=== PATIENT | female | born 1995 | race Native Hawaiian/Other Pacific Islander ===

== ENCOUNTER 2017-09-15 18:50 | Emergency (ER) | payer OTHER ==
[~2017-09-15] VITALS: Ht 170.2 cm; Wt 53.1 kg
== END 2017-09-15 19:30 | disposition home or self-care (01) ==
LOC: ED 18:50
DX: M79.641 Pain in right hand (principal)
CPT/HCPCS: 99281

== ENCOUNTER 2018-09-26 20:57 | Emergency (ER) | payer OTHER ==
[~2018-09-26] VITALS: Ht 170.2 cm; Wt 56.7 kg
[2018-09-26 21:53] LABS: PLATELET COUNT 253 K/uL (152-353)
[2018-09-26 22:06] LABS: POTASSIUM 3.3 mmol/L (3.6-5.2)
[2018-09-26] MEDS ORDERED: ASPIR-8181 MG PO (22:38)
[2018-09-26] MEDS ORDERED: FLUOXETINE20 MG PO (22:38)
[2018-09-26] MEDS ORDERED: MEGESTROL AC40 MG PO (22:39)
[2018-09-26] MEDS ORDERED: DULOXETINE HCL30 MG PO (22:39)
[2018-09-26] MEDS ORDERED: SOD CHLORIDE1 GM PO (22:40)
[2018-09-26] MEDS ORDERED: EQ MOTION SICKN25 MG PO (22:41)
[2018-09-26] MEDS ORDERED: METOPROLOL25 M1 PO (22:41)
[2018-09-26] MEDS ORDERED: REMERON SOLTAB15 MG PO (22:42)
[2018-09-26] MEDS ORDERED: MEMANTINE HCL10 MG PO (22:42)
[2018-09-26] MEDS ORDERED: LIPITOR80 MG PO (22:43)
[2018-09-26] MEDS ORDERED: LEVO-T25 MCG PO (22:44)
[2018-09-26] MEDS ORDERED: DONEPEZIL HYDRO10 MG PO (22:44)
[2018-09-26] MEDS ORDERED: RENVELA800 MG PO (22:45)
[2018-09-26 23:12] VITALS: BP 121/69; TEMP 98.1
== END 2018-09-26 23:14 | disposition home or self-care (01) ==
LOC: ED 20:57
PROVIDERS: Family Medicine
DX: J06.9 Acute upper respiratory infection, unspecified (principal); J20.9 Acute bronchitis, unspecified
CPT/HCPCS: 36415; 80053; 81025; 85027; 87502; 94664; 96372; 99283; J2930

== ENCOUNTER 2018-11-06 22:31 | Emergency (ER) | payer OTHER ==
[~2018-11-06] VITALS: Ht 170.2 cm; Wt 56.7 kg
[~2018-11-06 22:31] MED LIST: ASPIR-8181 MG PO; DONEPEZIL HYDRO10 MG PO; DULOXETINE HCL30 MG PO; EQ MOTION SICKN25 MG PO; FLUOXETINE20 MG PO; LEVO-T25 MCG PO; LIPITOR80 MG PO; MEGESTROL AC40 MG PO; MEMANTINE HCL10 MG PO; METOPROLOL25 M1 PO; REMERON SOLTAB15 MG PO; RENVELA800 MG PO; SOD CHLORIDE1 GM PO
[2018-11-06 23:40] VITALS: BP 120/79; TEMP 98.1
== END 2018-11-06 23:42 | disposition home or self-care (01) ==
LOC: ED 22:31
DX: N91.2 Amenorrhea, unspecified (principal); R63.4 Abnormal weight loss; R11.2 Nausea with vomiting, unspecified
CPT/HCPCS: 81025; 99282